=== PATIENT | male | born 1985 | race African-American/Black ===

== ENCOUNTER 2022-05-04 08:19 | Outpatient (CLI) | payer OTHER | END 2022-05-04 08:20 | disposition home or self-care (01) | LOC: TBSIIMAG 08:19 | PROVIDERS: ATTEND Specialist | DX: M51.16 Intervertebral disc disorders with radiculopathy, lumbar region (principal); M48.061 Spinal stenosis, lumbar region without neurogenic claudication; M47.26 Other spondylosis with radiculopathy, lumbar region; M47.25 Other spondylosis with radiculopathy, thoracolumbar region; M47.27 Other spondylosis with radiculopathy, lumbosacral region | CPT/HCPCS: 72148 ==